=== PATIENT | female | born 1985 | race Caucasian/White ===

== ENCOUNTER 2017-05-07 11:08 | Emergency (ER) | END 2017-05-07 15:20 | disposition home or self-care (01) ==

== ENCOUNTER 2017-05-11 16:12 | Emergency (ER) | END 2017-05-11 20:15 | disposition home or self-care (01) ==

== ENCOUNTER 2018-10-06 13:33 | Emergency (ER) | payer OTHER ==
[~2018-10-06] VITALS: Ht 170.2 cm; Wt 98.6 kg
[~2018-10-06 13:33] MED LIST: BEN25 PO; CIPR500T4 PO; EPIN0.3P4 INJ; FAMO-96 PO; PRED20TA PO; SIME80TA6 PO
[2018-10-06 13:41] VITALS: BP 138/73; PULSE 88; RESP 18; Ht 170.2 cm; Wt 98.6 kg
[2018-10-06] MEDS ORDERED: ASPIRIN 325 MG TAB PO STA (14:51)
--- NOTE | 2018-10-06 17:11 | ERD ---
ER Documentation Chief Complaint Chief Complaint chest pain w/nunbness radiating down arm and lightheadedness 0430 HPI History of Present Illness: 33-year-old female who reports a history of prediabetes coming in today with complaint of left-sided chest pain with numbness rating down her left arm that is been present all day since 0. Patient reports symptoms of lightheadedness. Patient reports she has had symptoms of dizziness lasting few seconds and with cold sweats and head pressure at least once daily over the past couple of weeks. Patient reports that her primary care doctor knows about the symptoms and is aware. patient reports she had a stress test done approximately 4 years ago. Patient denies syncopal episodes. At home pharmacological/nonpharmacological treatment for symptoms: Denies Denies social concerns; Denies recent foreign travel ROS All systems reviewed and are negative except as per history of present illness. Medications Home Meds Active Scripts Epinephrine (Epipen 2-Erasto) 0.3 Mg/0.3 Ml Pen.injctr, 1 EA INJ ONCE PRN for ALLERGIC REACTION, #1 EA Prov:TIM MCKEON 05/11/17 Famotidine* (Pepcid*) 20 Mg Tablet, 20 MG PO BID for 10 Days, TAB Prov:GEORGIANA ZALDIVAR PA-C 05/07/17 Prednisone* (Prednisone*) 20 Mg Tab, 40 MG PO DAILY for 4 Days, TAB Prov:GEORGIANA ZALDIVAR PA-C 05/07/17 Diphenhydramine Hcl* (Benadryl*) 25 Mg Cap, 25 MG PO Q6, #30 CAP Prov:GEORGIANA ZALDIVAR PA-C 05/07/17 Simethicone* (Gas-X*) 80 Mg Tab.chew, 80 MG PO Q6H PRN for DI STENSION/GAS/BLOATING for 4 Days, TAB.CHEW Prov:CARRI SIEGEL DO 12/31/15 Ciprofloxacin Hcl* (Ciprofloxacin Hcl*) 500 Mg Tablet, 500 MG PO BID, #14 TAB Prov:CARRI SIEGEL DO 12/31/15 Allergies Allergies: Uncoded Allergies: ANY TYPE OF STEROIDS (Allergy, Unknown, hives, 10/06/18) PMhx/Soc History of Surgery: Yes (B Tubal Ligation) Anesthesia Reaction: No Hx Neurological Disorder: No Hx Respiratory Disorders: No Hx Cardiac Disorders: No Hx Psychiatric Problems: Yes (Anxiety,Depression) Hx Miscellaneous Medical Probl: Yes (Cervical CA) Hx Alcohol Use: No Hx Substance Use: No Hx Tobacco Use: No Smoking Status: Never smoker FmHx Family History: No diabetes, No coronary disease Physical Exam Vitals Vital Signs Date Temp Pulse Resp B/P (MAP) Pulse Ox O2 O2 Flow FiO2 Time Delivery Rate 10/06/18 98.1 88 18 138/73 99 13:41 (94) Physical Exam Const: No acute distress, afebrile Head: Atraumatic Eyes: Normal Conjunctiva ENT: Normal External Ears, Nose and Mouth. Neck: Full range of motion. No meningismus. Resp: Clear to auscultation bilaterally Cardio: Regular rate and rhythm, no murmurs Abd: Soft, non tender, non distended. No guarding, no masses, no rigidity. Obese. Skin: No petechiae or rashes Back: No midline or flank tenderness Ext: No cyanosis, or edema Neur: Awake and alert x3, speaking in clear sentences, no focal deficits or facial asymmetry Psych: Normal Mood and Affect Result Diagram: 10/06/18 1515 10/06/18 1515 Results 24 hrs Laboratory Tests Test 10/06/18 15:14 10/06/18 15:15 10/06/18 15:19 Bedside Urine pH (LAB) 6.0 Bedside Urine Protein (LAB) Negative Bedside Urine Glucose (UA) Negative Bedside Urine Ketones (LAB) Negative Bedside Urine Blood Negative Bedside Urine Nitrite (LAB) Negative Bedside Urine Leukocyte Esterase 1+ (L POC Beta HCG, Qualitative NEGATIVE Urine Opiates Screen Negative Urine Barbiturates Negative Urine Amphetamines Screen Negative Urine Benzodiazepines Screen Negative Urine Cocaine Screen Negative Urine Cannabinoids Negative White Blood Count 8.6 10^3/ul Red Blood Count 4.27 10^6/ul Hemoglobin 13.0 g/dl Hematocrit 38.5 % Mean Corpuscular Volume 90.2 fl Mean Corpuscular Hemoglobin 30.4 pg Mean Corpuscular 33.8 g/dl Hemoglobin Concent Red Cell Distribution Width 11.9 % Platelet Count 327 10^3/UL Mean Platelet Volume 10.4 fl Immature Granulocytes % 0.400 % Neutrophils % 59.2 % Lymphocytes % 33.5 % Monocytes % 5.1 % Eosinophils % 1.4 % Basophils % 0.4 % Nucleated Red Blood Cells % 0.0 /100WBC Immature Granulocytes # 0.030 10^3/ul Neutrophils # 5.1 10^3/ul Lymphocytes # 2.9 10^3/ul Monocytes # 0.4 10^3/ul Eosinophils # 0.1 10^3/ul Basophils # 0.0 10^3/ul Nucleated Red Blood Cells # 0.0 10^3/ul Sodium Level 140 mmol/L Potassium Level 3.7 mmol/L Chloride Level 105 mmol/L Carbon Dioxide Level 27 mmol/L Anion Gap 8 Blood Urea Nitrogen 14 mg/dl Creatinine 0.59 mg/dl Est Glomerular Filtrat Rate mL/min > 60 mL/min Glucose Level 97 mg/dl Calcium Level 9.0 mg/dl Creatine Kinase 183 IU/L Creatine Kinase Index 1.0 Creatinine Kinase MB (Mass) 1.84 ng/ml Troponin I < 0.012 ng/ml Bedside Glucose 96 mg/dL Current Medications Medications Dose Sig/Farideh Start Time Status Last (Trade) Ordered Route PRN Stop Time Admin Dose Reason Admin Aspirin 325 mg ONCE STAT 10/06/18 DC 10/06/18 (Aspirin) PO 14:51 15:11 10/06/18 14:54 Procedures/MDM ED course includes a thorough examination and history. Medications: Aspirin Imaging: Chest x-ray Labs: CBC, CMP, urinalysis, UDS, troponin, CK, CK-MB Low suspicion for life-threatening medical emergency. Low suspicion for cardiac emergency that requires hospitalization at this time or immediate surgical intervention. low suspicion for NSTEMI, STEMI. Otherwise healthy patient presenting with constellation of symptoms likely representing uncomplicated [x] as characterized by history, physical exam findings, lab findings, radiology findings. CBC: no e/o of systemic in fection or severe anemia. CMP: no e/o severe acidosis, alkalosis, renal failure, diabetic ketoacidosis, liver disease. Troponin negative. CK and CK-MB within normal limits. UDS negative. Urinalysis negative for infection. Chest x-ray showing: IMPRESSION: No evidence for active cardiopulmonary disease. RPTAT: HRGF Kalin-Toni Evette, Physician Date Time Electronically viewed and signed by Daron Alas Physician on 10/06/2018 15 :48 Patient reassessment: Patient hemodynamically stable. No respiratory distress, otherwise relatively well appearing and nontoxic. Patient with decreased pain after administration of aspirin. Patient verbalizes understanding of discharge instructions as well as follow-up care with her primary care doctor with possible referral to developmental therapist. Disposition given. Patient educated on diagnoses, prescriptions, follow-up care, return precautions. Strict return precautions given for worsening condition; questions answered discharge. Disposition for discharge with followup in 2 days with PCP/clinic. Departure Diagnosis: Primary Impression: Chest pain Chest pain type: unspecified Qualified Codes: R07.9 - Chest pain, unspecified Condition: Stable Patient Instructions: Chest Pain, Uncertain Cause Referrals: GATO MYERS MD (PCP) Additional Instructions: Thank you very much for allowing us to participate in your care. Your health and safety is our top priority at [facility]. It is important to read all discharge instructions and education provided in your discharge packet. Call your primary care doctor TOMORROW for an appointment during the next 2-4 days and bring all the information. If the symptoms get worse and your provider is unavailable, return to the Emergency Department immediately. LAUREANO PALUMBO NP Oct 06, 2018 17:11
== END 2018-10-06 16:32 | disposition home or self-care (01) ==
LOC: FTE 13:33
DX: R07.9 Chest pain, unspecified (principal); Z85.41 Personal history of malignant neoplasm of cervix uteri
CPT/HCPCS: 36415; 71045; 80048; 80307; 81003; 81025; 82550; 82553; 82962; 84484; 85025; 93005; Z7502; Z7610